=== PATIENT | female | born 1960 | race Caucasian/White ===

== ENCOUNTER 2019-02-07 19:03 | Emergency (ER) | payer MEDICAID, OTHER ==
--- NOTE | 2019-02-07 20:07 | ED Physician Documentation ---
History of Present Illness - Stated complaint Stated Complaint: LT LEG PX,BUTTOCK PX - Chief complaint Chief Complaint: Back Pain - History obtained from History obtained from: Patient - History of Present Illness Timing: How many weeks ago (3) Pain level now: 10 Improved by: rest Worsened by: movement, palpation, position - Additonal information Additional information: c/o 3 weeks of pain left buttock that radiates down LLE to left foot. Denies injury, denies previous similar symptoms. Says "I've been eating tylenol like it's candy" without relief, "resorted to trying alcohol" without relief. Saw chiropractor twice. Has not seen PMD; PMD is in [place] and patient says it's "too much pain getting in and out of the car" to go to [place]. Pain is worse with movement of LLE, particularly at hip. Review of Systems Constitutional: denies: Fever Cardiac: denies: Chest pain / pressure Respiratory: denies: Dyspnea : denies: Unable to Void, Incontinent Skin: denies: Rash Musculoskeletal: reports: Extremity pain (left buttock pain, not back pain per se), Pain with weight bearing. denies: Extremity swelling Neurologic: denies: Focal weakness, Numbness PD PAST MEDICAL HISTORY - Past Medical History Past Medical History: No Cardiovascular: None Respiratory: None Neuro: Headaches, Migraines Endocrine/Autoimmune: None GI: None SIGNALS COLLECTOR/ANALYST: None : None HEENT: None Psych: None Musculoskeletal: None Derm: Herpes zoster - Past Surgical History Past Surgical History: No /SIGNALS COLLECTOR/ANALYST: Tubal ligation HEENT: Tonsil/Adenoidectomy - Present Medications Home Medications: Ambulatory Orders Medication Instructions Recorded Confirmed Cyclobenzaprine [Flexeril] 10 mg PO TID PRN #20 tablet 02/07/19 Hydrocodone/Acetaminophen 1 - 2 each PO Q6H PRN #14 tablet 02/07/19 [Hydrocodon-Acetaminophen 5-325] - Allergies Allergies/Adverse Reactions: Allergies Allergy/AdvReac Type Severity Reaction Status Date / Time aspirin Allergy Hives Verified 02/07/19 19:11 - Social History Does the pt smoke?: Yes Smoking Status: Current every day smoker Does the pt drink ETOH?: Yes Does the pt have substance abuse?: No - Immunizations Immunizations are current?: Yes - POLST Patient has POLST: No PD ED PE NORMAL - Vitals Vital signs reviewed: Yes - General General: Alert and oriented X 3, No acute distress, Well developed/nourished - Back Back: No CVA TTP, No spinal TTP - Derm Derm: Normal color, Warm and dry, No rash - Extremities Extremities: No deformity, No tenderness to palpate, Normal ROM s pain, No edema, No calf tenderness / cord - Neuro Neuro: No motor deficit, No sensory deficit Results - Vitals Vitals: Vital Signs - 24 hr 02/07/19 02/07/19 19:09 20:31 Temperature 36 C L 36.4 C L Heart Rate 96 75 Respiratory 18 16 Rate Blood Pressure 123/84 H 121/71 O2 Saturation 98 97 Oxygen O2 Source Room air PD MEDICAL DECISION MAKING - ED course Complexity details: considered differential, d/w patient, d/w family ED course: H+P s/o sciatic nerve pain; emergent testing unlikely to result in diagnosis or change acute management (symptomatic). I emphasized the need for f/u with PMD, but encouraged her to return if worse in any way. DVT considered but no swelling of distal leg, no obvious risk factors (previous DVT, injury), and pain is mostly proximal with radiation down back of leg to foot in intermittent fashion Departure - Departure Disposition: 01 Home, Self Care Clinical Impression: Sciatica Qualifiers: Laterality: left Qualified Code(s): M54.32 - Sciatica, left side Condition: Good Instructions: ED Sciatica Prescriptions: Cyclobenzaprine [Flexeril] 10 mg PO TID PRN #20 tablet PRN Reason: Spasms Hydrocodone/Acetaminophen [Hydrocodon-Acetaminophen 5-325] 1 - 2 each PO Q6H PRN #14 tablet PRN Reason: pain Comments: Contact your primary care provider's office in the morning to arrange for next available appointment; as we discussed, emergent testing is not indicated at this time, but your doctor might want to order tests in the outpatient setting, and/or have you undergo physical therapy. If you take the precribed vicodin (hydrocodone/acetaminophen), you MUST stop taking any and all acetaminophen-containing products (such as tylenol). You CAN take ibuprofen (Advil, Motrin) in ADDITION to the vicodin if the vicodin alone (or the vicodin and flexeril) is/are insufficient in controlling your pain. Once your pain has decreased, try to take ibuprofen INSTEAD of the vicodin. Discharge Date/Time: 02/07/19 20:34
[2019-02-07] MEDS ORDERED: DEXAMETHASONE 10 MG/ML VIAL PO STA (20:22)
[2019-02-07] MEDS ORDERED: CHERRY SYRUP 10 ML UDC PO ONE (20:22)
[2019-02-07] MEDS ORDERED: CYCLOBENZAPRINE 10 MG TABLET PO STA (20:22)
[2019-02-07] MEDS ORDERED: HYDROcod/ACETAM 5/325 MG TABLET PO STA (20:22)
[2019-02-07 20:32] VITALS: BP 121/71
== END 2019-02-07 20:34 | disposition home or self-care (01) ==
LOC: ED 19:03
DX: M54.32 Sciatica, left side (principal); F17.200 Nicotine dependence, unspecified, uncomplicated
CPT/HCPCS: 99283; A9270

== ENCOUNTER 2019-05-13 08:33 | Outpatient (CLI) | payer MEDICAID ==
[2019-05-13 12:17] LABS: THYROID STIMULATING HORMONE 4.56 uIU/mL (0.34-5.60)
[2019-05-13 12:19] LABS: FREE T4 (FREE THYROXINE) 0.92 ng/dL (0.58-1.64)
== END 2019-05-13 23:59 | disposition home or self-care (01) ==
LOC: LAB.N 08:33
PROVIDERS: ATTEND Family Medicine
DX: Z83.49 Family history of other endocrine, nutritional and metabolic diseases (principal)
CPT/HCPCS: 36415; 84439; 84443; 84481

== ENCOUNTER 2019-07-22 14:01 | Outpatient (CLI) | payer MEDICAID ==
--- NOTE | 2019-07-23 06:35 | MRI Report ---
Reason: LUMBAR RADICULOPATHY Procedure Date: 07/22/2019 Accession Number: [id number] / [id number] Procedure: MRI - Lumbar Spine W/O CPT Code: FULL RESULT: EXAM: MRI LUMBAR SPINE WITHOUT CONTRAST EXAM DATE: 07/22/2019 02:43 PM. CLINICAL HISTORY: Lumbar radiculopathy. COMPARISON: None. TECHNIQUE: Multiplanar, multisequence T1-weighted and fluid-sensitive sequences of the lumbar spine from T9 to S1 without contrast. Other: None. FINDINGS: Spinal Canal: The conus terminates at L1. The conus medullaris and cauda equina are unremarkable. Alignment: Retrolisthesis at L4-L5 measures 3-4 mm. Bone Marrow: Five [id number] lumbar vertebral bodies are assumed. No abnormal bone marrow edema is identified. Small chronic Schmorl's nodes are noted at T9-T10 through T12-L1. Disk Levels/Facets: T9-T10: Unremarkable on sagittal images. T10-T11: On sagittal images, a disk bulge results in mild spinal canal stenosis without impingement on the spinal cord. The foramina are patent. T11-T12: Unremarkable on sagittal images. T12-L1: Unremarkable. L1-L2: Unremarkable. L2-L3: A disk bulge with facet arthropathy and ligamentum flavum infolding result in mild spinal canal stenosis. There is mild bilateral foramina narrowing. L3-L4: A disk bulge with facet arthropathy and ligamentum flavum infolding result in mild spinal canal stenosis. There is mild bilateral foraminal narrowing, worse on the right. L4-L5: A posterior disk osteophyte complex with facet arthropathy and ligamentum flavum infolding result in mild spinal canal stenosis. There is moderate left and mild right foraminal narrowing. L5-S1: Disk height loss results in moderate bilateral foraminal narrowing. The spinal canal is patent. Musculature: There is mild diffuse fatty atrophy of the posterior paraspinal muscles without intramuscular edema. Other: The partially visualized retroperitoneum is unremarkable. IMPRESSION: 1. Normal conus medullaris and cauda equina. 2. Mild multilevel degenerative changes are present but no high-grade spinal canal stenosis is seen at any lumbar level. 3. Moderate left foraminal narrowing is present at L4-L5. 4. No abnormal bone marrow edema. Comment: The following findings are so common in adults without low back pain that while we report their presence, they must be interpreted with caution and in the context of the clinical situation. (Reference Neftaly et al, Spine 2001) Prevalence of findings in patients without low back pain: Disk degeneration (any evidence): 92% Disk desiccation/T2 signal loss: 83% Disk height loss: 56% Disk bulge: 64% Disk protrusion: 32% Annular tear/high intensity zone: 38% RADIA
== END 2019-07-22 14:02 | disposition home or self-care (01) ==
LOC: DI 14:01
PROVIDERS: ATTEND Family Medicine
DX: M47.816 Spondylosis without myelopathy or radiculopathy, lumbar region (principal); M51.37 Other intervertebral disc degeneration, lumbosacral region; M48.07 Spinal stenosis, lumbosacral region; M48.04 Spinal stenosis, thoracic region
CPT/HCPCS: 72148